=== PATIENT | female | born 1975 | race Two or more races ===

== ENCOUNTER 2024-10-04 12:20 | Day surgery (SDC) | payer MEDICAID, SELFPAY ==
[2024-10-04] VITALS (11 sets, daily range): BP systolic 129–175; BP diastolic 74–102; PULSE 70–93; RESP 16–81; TEMP 36.7–36.9; O2SAT 97–100; BMI 29.7
[2024-10-04] MEDS: RINGERS LACTATED 1000 ML 1,000 ML 100 ML IV (14:27)
[2024-10-04] MEDS: MIDAZOLAM INJ 1 MG/ML VIAL 2 ML (ASD USE ONLY) 2 MG IV (14:37)
[2024-10-04] MEDS: fentaNYL CIT INJ 50 mCg/ML AMP 2ML (ASD USE ONLY) IV (14:40)
[2024-10-04] MEDS: DiphenhydrAMINE INJ 50 MG/ML VIAL 25 MG IV (14:41)
== END 2024-10-04 15:30 | disposition home or self-care (01) ==
PROVIDERS: Referring Provider Surgery; Visit Provider Surgery
PROC: 0DBE8ZX Excision of Large Intestine, Via Natural or Artificial Opening Endoscopic, Diagnostic (ICD-10-PCS; CPT 45380; principal; 2024-10-04 14:30)
DX: Z12.11 Encounter for screening for malignant neoplasm of colon (principal); K57.30 Diverticulosis of large intestine without perforation or abscess without bleeding
CPT/HCPCS: 45378; J1200; J2250; J3010; J7120